=== PATIENT | female | born 1950 | race Caucasian/White ===

== ENCOUNTER 2017-01-14 10:49 | Emergency (ER) | payer MEDICARE, OTHER ==
[~2017-01-14] VITALS: Ht 162.6 cm; Wt 72.7 kg
[~2017-01-14 10:49] MED LIST: ALBU8.5H3 INH; AMLO-147 PO; ASPI81TA3 PO; ATOR80TA75 PO; BENA40TA41 PO; CARV25TA79 PO; ESOM40CA PO; FLUT12HF IH; INSU100I14 SC; METF-382 PO; MIRT30TA5 PO; NASO17 NASAL
[2017-01-14 11:02] VITALS: Ht 162.6 cm; Wt 72.7 kg
[2017-01-14] MEDS ORDERED: SOD CHLORIDE 0.9% 500 ML IV STA (11:05)
[2017-01-14 11:10] LABS: ADD SCAN DIFF NO
[2017-01-14 11:15] LABS: BASOPHIL # 0.1 10^3/ul (0.0-0.1); BASOPHILS % 0.7 % (0.0-2.0); EOSINOPHILS # 0.4 10^3/ul (0.0-0.5); EOSINOPHILS % 4.7 % (0.0-7.0); HEMATOCRIT 39.8 % (37.0-47.0); HEMOGLOBIN 12.9 g/dl (12.0-16.0); LYMPHOCYTES # 0.7 10^3/ul (0.8-2.9); LYMPHOCYTES % 8.9 % (15.0-51.0); MEAN CORPUSCULAR HEMOGLOBIN 28.4 pg (29.0-33.0); MEAN CORPUSCULAR HGB CONC 32.4 g/dl (32.0-37.0); MEAN CORPUSCULAR VOLUME 87.7 fl (82.0-101.0); MEAN PLATELET VOLUME 10.4 fl (7.4-10.4); MONOCYTE # 0.7 10^3/ul (0.3-0.9); MONOCYTES % 8.5 % (0.0-11.0); NEUTROPHIL # 6.5 10^3/ul (1.6-7.5); NEUTROPHILS % 77.1 % (39.0-77.0); PLATELET COUNT 223 10^3/UL (140-415); RED BLOOD COUNT 4.54 10^6/ul (4.20-5.40); RED CELL DISTRIBUTION WIDTH 13.1 % (11.5-14.5); WHITE BLOOD COUNT 8.4 10^3/ul (4.8-10.8)
[2017-01-14 11:23] LABS: INR 1.07; PROTIME 13.9 Sec (12.2-14.2); PT RATIO 1.1
[2017-01-14 11:24] LABS: CHLORIDE 105 mmol/L (97-110); PARTIAL THROMBOPLASTIN TIME 25.6 Sec (25.0-35.0)
[2017-01-14 11:25] LABS: POTASSIUM 3.9 mmol/L (3.5-5.1); SODIUM 143 mmol/L (135-144)
[2017-01-14 11:27] LABS: CREATININE 0.57 mg/dl (0.44-1.00)
[2017-01-14 11:28] LABS: ANION GAP 16 (8-16); BLOOD UREA NITROGEN 12 mg/dl (7-20); CALCIUM 9.5 mg/dl (8.4-10.2); CARBON DIOXIDE 26 mmol/L (21-31); GLUCOSE 242 mg/dl (70-220)
[2017-01-14 11:35] LABS: B-TYPE NATRIURETIC PEPTIDE 565 PG/ML (0-125)
[2017-01-14 11:39] LABS: TROPONIN-I < 0.012 ng/ml (0.00-0.12)
--- NOTE | 2017-01-14 11:55 | RADRPT ---
PROCEDURE: XR Chest AP portable CLINICAL INDICATION: Chest pain TECHNIQUE: An AP portable radiograph of the chest was submitted. COMPARISON: 11/19/2013 FINDINGS: Support Hardware: None Cardiovascular: There has been interval midline sternotomy and the heart size is decreased is now no rmal. The pulmonary vasculature is also normalized. Lung Guillen: The lung guillen appear clear with no nodule, alveolar infiltrate, or interstitial promi nence evident. Pleural Spaces: No pneumothorax or pleural effusion is identified. Osseous Structures: Moderate degenerative spine changes are again noted. Soft Tissues: The soft tissues appear generous. IMPRESSION: 1. Interval midline sternotomy since the previous study. 2. The cardiovascular silhouette has normalized and there is no longer cardiomegaly or CHF. 3. The lung guillen and pleural spaces are now clear. Physician Lobito Date Time Electronically viewed and signed by Jose Daniel Franklin Physician on 01/14/2017 11:55 RH/
[2017-01-14] MEDS ORDERED: ALBUTEROL 0.083% (NEB) 2.5 MG/3 ML AMP NEB STA (12:19)
[2017-01-14] MEDS ORDERED: IPRATROPIUM (NEB) 0.5 MG/2.5 ML AMP NEB STA (12:19)
[2017-01-14] MEDS ORDERED: GUAIFENESIN/DM 5ML CUP PO ONE (13:00)
--- NOTE | 2017-01-14 13:12 | ERD ---
ER Documentation Chief Complaint Date/Time DATE: 01/14/17 TIME: 13:10 Chief Complaint BROUGHT IN VIA EMS DUE TO CHEST PAIN HPI This is a 66-year-old female presents to the emergency room for evaluation of nasal congestion, cough, and chest pain worse with coughing for the past 3 days. The patient states that she has no chest pain which does not cough however when she coughs or chest does hurt. The patient has been coughing up white phlegm. The patient states that her coughing is worse at nighttime. Denies any fevers, palpitations, shortness of breath, or nausea and vomiting ROS All systems reviewed and are negative except as per history of present illness. Medications Home Meds Reported Medications Insulin Lispro (Humalog) 100 U/Ml Insuln.pen, 0 SC SLIDING SCALE AC, EA 04/16/16 Metformin Hcl* (Metformin Hcl*) 500 Mg Tablet, 500 MG PO WITH BREAKFAST, #30 TAB 04/16/16 Amlodipine Besylate* (Amlodipine Besylate*) 10 Mg Tablet, 10 MG PO DAILY, #30 TAB 04/16/16 Benazepril Hcl* (Benazepril Hcl*) 40 Mg Tablet, 40 MG PO DAILY, #30 TAB 04/16/16 Salmeterol Xinaf-Fluticasone* (Advair HFA*) 45/212 Aerosol Inhaler, 2 INH IH BID , #1 INHALER 04/16/16 Esomeprazole Mag Trihydrate (Nexium) 40 Mg Capsule.dr, 40 MG PO DAILY, #30 CAP 04/16/16 Albuterol Sulfate* (Proair HFA*) 8.5 Gm Hfa.aer.ad, 2 PUFF INH Q4, #1 INHALER 04/16/16 Mometasone Furoate* (Nasonex*) 50 Mcg/Arminto - 17 Gm Arminto.pump, 1 SPRAY NASAL BID, #1 BOTTLE IN EACH NOSTRIL 04/16/16 Carvedilol* (Carvedilol*) 25 Mg Tablet, 25 MG PO BID, #60 TAB 04/16/16 Mirtazapine* (Mirtazapine*) 30 Mg Tablet, 45 MG PO DAILY, TAB 04/16/16 Atorvastatin* (Atorvastatin*) 80 Mg Tablet, 80 MG PO PM 11/19/13 Aspirin (Aspirin) 81 Mg Chew, 81 MG PO DAILY 11/19/13 Allergies Allergies: Coded Allergies: No Known Drug Allergies (Verified Allergy, 11/19/13) Uncoded Allergies: NKDA (Allergy, 08/20/11) PMhx/Soc History of Surgery: Yes (APPENDECTOMY, CABG, LAP BAND) Anesthesia Reaction: No Hx Neurological Disorder: No Hx Respiratory Disorders: Yes (ASTHMA) Hx Cardiac Disorders: Yes (HTN, CAD, S/P CABG) Hx Psychiatric Problems: No Hx Miscellaneous Medical Probl: No Hx Alcohol Use: No Hx Substance Use: No Hx Tobacco Use: No Smoking Status: Never smoker Physical Exam Vitals Vital Signs Date Time Temp Pulse Resp B/P Pulse Ox O2 Delivery O2 Flow Rate FiO2 01/14/17 12:40 7.0 01/14/17 12:40 89 20 Simple Mask 7.0 99 01/14/17 11:14 Simple Mask 7 01/14/17 11:02 98.5 84 18 154/83 87 Physical Exam INITIAL VITAL SIGNS: Reviewed by me GENERAL: The patient is well developed and appropriate for usual state of health in no apparent distress HEENT: Bilateral nasal congestion, pupils equal, round, and reactive to light. EOMI. There is no scleral icterus. NECK: C-spine is soft and supple, there is no meningismus. There is no cervical lymphadenopathy. LUNGS: Mild end expiratory wheezing bilaterally HEART: Regular rate and rhythm, no murmurs, clicks, rubs or gallops. ABDOMEN: Soft, non-tender, non-distended. There are bowel sounds in all four quadrants. No rebound or guarding. EXTREMITIES: There is no peripheral cyanosis or edema. No focal swelling or erythema. NEUROLOGICAL: The patient moves all four extremities with 5/5 strength. Cranial nerves II - XII are intact. Normal gait. Alert and oriented SKIN: There is no apparent rash or petechiae. HEME/LYMPHATIC: There is no evidence of excessive bruising or lymphedema. PSYCHIATRIC: The patient does not appear anxious or depressed. Result Diagram: 01/14/17 1106 01/14/17 1106 Results 24 hrs Laboratory Tests Test 01/14/17 11:06 Activated Partial Thromboplast Time 25.6Sec Anion Gap 16 B-Type Natriuretic Peptide 565PG/ML Basophils # 0.110^3/ul Basophils % 0.7% Blood Urea Nitrogen 12mg/dl Calcium Level 9.5mg/dl Carbon Dioxide Level 26mmol/L Chloride Level 105mmol/L Creatinine 0.57mg/dl Eosinophils # 0.410^3/ul Eosinophils % 4.7% Glucose Level 242mg/dl Hematocrit 39.8% Hemoglobin 12.9g/dl INR International Normalized Ratio 1.07 Lymphocytes # 0.710^3/ul Lymphocytes % 8.9% Mean Corpuscular Hemoglobin 28.4pg Mean Corpuscular Hemoglobin Concent 32.4g/dl Mean Corpuscular Volume 87.7fl Mean Platelet Volume 10.4fl Monocytes # 0.710^3/ul Monocytes % 8.5% Neutrophils # 6.510^3/ul Neutrophils % 77.1% Nucleated Red Blood Cells # 0.010^3/ul Nucleated Red Blood Cells % 0.0/100WBC Platelet Count 28022^3/UL Potassium Level 3.9mmol/L Prothrombin Time 13.9Sec Prothrombin Time Ratio 1.1 Red Blood Count 4.5410^6/ul Red Cell Distribution Width 13.1% Sodium Level 143mmol/L Troponin I < 0.012ng/ml White Blood Count 8.410^3/ul Current Medications Medications (Trade) Dose Ordered Sig/Isac Route PRN Reason Start Time Stop Time Status Last Admin Dose Admin Sodium Chloride (NS) 500 ml @ 500 mls/hr Q1H STAT IV 01/14/17 11:05 01/14/17 12:04 DC 01/14/17 11:14 Albuterol (Proventil 0.083% (Neb)) 5 mg ONCE STAT NEB 01/14/17 12:19 01/14/17 12:20 DC 01/14/17 12:39 Ipratropium [place] (Atrovent 0.02% (Neb)) 0.5 mg ONCE STAT NEB 01/14/17 12:19 01/14/17 12:20 DC 01/14/17 12:39 Guaifenesin/ Dextromethorphan (Robitussin Dm Liquid Cup) 10 ml ONCE ONCE PO 01/14/17 13:00 01/14/17 13:01 DC Procedures/MDM Chest X-ray 1V Interpreted by me: Soft Tissue: No acute abnormalities Bones: No acute abnormalities Mediastinum/Cardiac Silhouette/Lungs: [No acute abnormalities] EKG: Rate/Rhythm: [Normal Sinus Rhythm] QRS, ST, T-waves: [No changes consistent w/ acute ischemia] Impression: [No evidence of ischemia or arrhythmia] This 66-year-old female presents to the ER for evaluation of nasal congestion, cough, and chest pain worse with coughing. This patient has no chest pain at rest. This patient did have bilateral nasal congestion, and wheezing on my examination. Lab work was obtained including a troponin which was normal. Her EKG is nonischemic. Chest x-ray is also clear. This patient has not had any chest pain without her cough. I do feel that her symptoms are respiratory in nature, likely from acute bronchitis. The patient was given a breathing treatment with albuterol, and Atrovent. She was also given Robitussin. Pulmonary evaluation she states that she is feeling much better. This patient will be discharged home at this time with a prescription for Provera, and Robitussin for acute bronchitis. I advised to return to the ER if she were to develop any chest pain at rest or worsening symptoms and she verbalized understanding. Departure Diagnosis: Primary Impression: Acute bronchitis Additional Impression: Chest pain Condition: Stable TAMAR ARROYO DO Jan 14, 2017 13:12
[2017-01-14] MEDS ORDERED: UDROBDM PO (13:13)
[2017-01-14] MEDS ORDERED: ALBU8.5H3 INH (13:13)
[2017-01-14 13:23] VITALS: BP 164/79; PULSE 70; RESP 18; TEMP 98.5
== END 2017-01-14 13:26 | disposition home or self-care (01) ==
LOC: E/R 10:49
DX: J20.9 Acute bronchitis, unspecified (principal); I10 Essential (primary) hypertension; I25.10 Atherosclerotic heart disease of native coronary artery without angina pectoris; J45.909 Unspecified asthma, uncomplicated; E10.9 Type 1 diabetes mellitus without complications; Z95.1 Presence of aortocoronary bypass graft; Z79.84 Long term (current) use of oral hypoglycemic drugs; Z79.4 Long term (current) use of insulin; Z79.82 Long term (current) use of aspirin
CPT/HCPCS: 36415; 71010; 80048; 83880; 84484; 85025; 85610; 85730; 87400; 94664; 99285; J7040; 93005